=== PATIENT | female | born 1985 | race Native Hawaiian/Other Pacific Islander ===

== ENCOUNTER 2023-10-12 08:34 | Emergency (ER) | payer OTHER, SELFPAY ==
[2023-10-12 08:40] VITALS: BP 118/81; PULSE 72; RESP 16; TEMP 36.4; O2SAT 99; BMI 23.2
[2023-10-12] MEDS: ONDANSETRON 2 MG/ML inj 4 MG IVP (09:08)
[2023-10-12] MEDS: 0.9 % SODIUM CHLORIDE 1000 ml 1,000 ML IV (09:08)
[2023-10-12] MEDS: diphenhydrAMINE 50 MG/ML inj 25 MG IVP (09:09)
--- NOTE | 2023-10-12 09:10 | ED.GENADULT ---
HPI - General Adult General Chief complaint: Headache/Migraine Stated complaint: Dizzy, Numb hands, unsteady on feet, migraine Time Seen by Provider: 10/12/23 08:46 History of Present Illness HPI narrative: Patient is a 38-year-old woman with chronic migraine headaches who comes in today with worsening of her chronic migraine. She has left-sided headache as well as mild photophobia. She has no focal neurologic defects. Hip pain is 8/10 in intensity. She has had no nausea no vomiting no fevers no chills. She takes Excedrin and Tylenol for her headaches at home and those have been unsuccessful. Pain is dull. Related Data Home Medications ?Medication ?Instructions ?Recorded ?Confirmed cyclobenzaprine 10 mg tablet 10 mg PO HS PRN 10/12/23 10/12/23 levothyroxine 75 mcg tablet 75 mcg PO DAILY 10/12/23 10/12/23 Previous Rx's ?Medication ?Instructions ?Recorded ondansetron 8 mg disintegrating 8 mg PO Q8H PRN nausea and 10/05/23 tablet vomiting #10 tabs Allergies Allergy/AdvReac Type Severity Reaction Status Date / Time aspirin Allergy Mild itchy Verified 10/12/23 08:40 Review of Systems Status of ROS: Reports: 10 or more systems reviewed and unremarkable except as noted in History and below Exam Narrative: Exam Narrative: EXAM GENERAL: Patient appears comfortable and well. EYES: No scleral icterus. LYMPH: No supraclavicular or cervical lymphadenopathy. SKIN: Visible skin seen during exam normal or with benign process only. EXT: No dependent lower extremity pedal edema. HEART: Regular rate and rhythm with no murmurs, rubs, or gallops. LUNGS: Clear to auscultation bilaterally with no crackles or wheezes. ABD: Soft, non tender, non distended. PSYCH: Good eye contact, speech is not pressured. Const: Vital Signs, click to edit/add: Vital Signs - 24 hr 10/12/23 08:40 Temperature 97.6 F Pulse Rate [Pulse Oximeter] 72 Respiratory Rate 16 Blood Pressure [Le ft Upper Arm] 118/81 Pulse Oximetry 99 Oxygen Delivery Me thod Room Air Course Course ED Course: Patient seen and examined. Vital Signs Vital signs: Initial Vital Signs Temperature 97.6 F 10/12/23 08:40 Temperature Source Temporal Artery Scan 10/12/23 08:40 Pulse Rate 72 10/12/23 08:40 Respiratory Rate 16 10/12/23 08:40 Blood Pressure 118/81 10/12/23 08:40 Blood Pressure Mean 93 10/12/23 08:40 Blood Pressure Position Sitting 10/12/23 08:40 Pulse Oximetry 99 10/12/23 08:40 Oxygen Delivery Method Room Air 10/12/23 08:40 Vital Signs Temperature 97.6 F 10/12/23 08:40 Pulse Rate 72 10/12/23 08:40 Respiratory Rate 16 10/12/23 08:40 Blood Pressure 118/81 10/12/23 08:40 Pulse Oximetry 99 10/12/23 08:40 Oxygen Delivery Method Room Air 10/12/23 08:40 Temperature 97.6 F 10/12/23 08:40 Pulse Rate 72 10/12/23 08:40 Respiratory Rate 16 10/12/23 08:40 Blood Pressure 118/81 10/12/23 08:40 Pulse Oximetry 99 10/12/23 08:40 Oxygen Delivery Method Room Air 10/12/23 08:40 Medical Decision Making MDM Narrative Medical decision making narrative: Patient is a 38-year-old woman with chronic migraine headaches who presents with worsening of her chronic symptoms. There are no red flags today and we did treat her with normal saline Zofran Toradol and Benadryl. I did recommend close outpatient follow-up. Differential diagnosis includes but not limited to cluster headaches migraine headaches tension headaches seasonal allergies. Discharge Plan Discharge Clinical Impression: Headache Patient Disposition: Home, Self-Care Condition: Stable Instructions: Acute Headache (ED) Additional Instructions: Tylenol 650 every 6 hours as needed Motrin 600 mg every 6 hours as needed. Ice Follow-up with your doctor as needed. 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
[2023-10-12] MEDS: KETOROLAC 30 MG/ML inj IVP (09:22)
--- OUTSIDE RECORDS SUMMARY | 2023-10-12 09:23 | XMS_ITS | Clinical Summary ---
Author Organization [facility] Address [place], [place] [address] Care Team Providers Care Tool Crib Attendant Name Role Phone Unavailable Primary Care Provider Unavailabl e Allergies Active Allergy Reactions Criticality Noted Date Comments Latex Rash 02/20/2012 Shellfish Containing Products Rash,Itching 02/17 Montelukast Rash 08/06/2018 Medications Medication Sig Dispensed Refills Start Date End Date Status cetirizine (ZYRTEC) 10 mg tabletIndications:Non- seasonal allergic rhinitis due to other allergic trigger Take 1 tablet by mouth once daily. 90 tablet 3 7 Active pregabalin (LYRICA) 100 mg capsuleIndications:Fib romyalgia TAKE 1 CAPSULE(100 MG) BY MOUTH TWICE DAILY 60 Capsule 3 Active levothyroxine (SYNTHROID) 75 mcg tabletIndications:Hypo thyroidism, unspecified type Take 1 Tablet (75 mcg) by mouth before breakfast. 90 Tablet 4 Active cyclobenzaprine (FLEXERIL) 10 mg tabletIndications:Bila teral temporomandibular joint pain,Fibromyalgia Take 1 Tablet (10 mg) by mouth at bedtime if needed for Muscle Spasm. 30 Tablet 4 Active cyclobenzaprine (FLEXERIL) 10 mg tabletIndications:Bila teral temporomandibular joint pain,Fibromyalgia TAKE 1 TABLET(10 MG) BY MOUTH AT BEDTIME NEEDED FOR MUSCLE SPASM 30 Tablet 5 3 09/18/19 24 Discontinued Active Problems Problem Noted Date Diagnosed Date Anorexia nervosa, restricting type 2021 Hyperopia of both eyes 11/01/2019 Fibromyalgia 03/06/2019 Iron deficiency anemia secon figueroa to inadequate dietary iron intake 08/30/2017 Major depressive disorder, recurrent episode, un specified 07/12/2012 Posttraumatic stress disorder 07/12/2012 Overview: Complex PTSD/BPD Migraine 05/09/2012 Endometriosis 05/09/2012 Eating disorder, unspecified 08/22/2008 Hypothyroid Resolved Problems Problem Noted Date Diagnosed Date Resolved Date Nausea & vomiting 09/02/2014 11/28/2014 Pneumomediastinum 09/02/2014 11/28/2014 Overview: Post op Chest pain 09/02/2014 11/28/2014 Pelvic pain in female 08/28/20142018 Heavy menstrual bleeding 08/28/201401/2015 Borderline personality disorder 07/30/2012 09/04/2012 Overview: Complex PTSD Major depressive disorder, s maik episode, moderate 06/16/2008 09/04/2012 Encounters Date Type Department Care Team Description 10/12/2023 Nurse Triage [facility] Centralized Nurse Triage Pcp, No Headache 09/16/2023 Refill [facility] [address] [place] [address] Sabrina Chavez PA Refill Request (Cyclobenzaprine) 08/15/2023 Refill [facility] [address] [place] [address] Sabrina Chavez PA Refill Request (Levothyroxine) from Last 3 Months Immunizations Name Administration Dates Next Due AMB Influenza, IIV3 (Age >=3 years)(Flu Clinic Only) 12/23/2008 COVID-19 vaccine (Moderna 100mcg/0.5mL) PF, MDV 08/13/2020,07/16/2020 COVID-19 vaccine (Moderna Dariusz wesly 50mcg/0.25mL) PF, MDV 04/05/2021 COVID-19 vaccine (Pfizer-Bio NTech 30mcg/0.3mL) 12YO+ BIVALENT PF, MDV 12/17/2021 Influenza A (H1N1), Inactiva tyrone (Age >=3 Years) 07/16/2009 Influenza Virus, Unspecified 01/27/2018 Influenza, IIV3 (Age >=3 years) 12/30/19 17,12/24/2012,12/19/2011,2005 Influenza, IIV4 12/17/2021,,01/16/2020,2018,12/18/2014 Influenza,LAIV4 Live Intrana merlyn (Flumist) 01/11/2013 Tdap 10/30/2019,07/16/2009 Family History Medical History Relation Name Comments Alcohol/Drug Brother 1 Alcohol/Drug Brother 2 Alcohol/Drug Father EtOH Diabetes Father had TB, hepatic CA, age 63 Other Mother migraine Diabetes Sister 1 Eliodora Diabetes Sister 2 Other Sister 3 Jeanette Cerebral hemorr alpa, in her 30s Other Sister 4 cataracts Anesthesia Problem No Family History Blood Disease No Family History Relation Name Status Comments Brother 1 Brother 2 Father Mother Sister 1 Eliodora Sister 2 Sister 3 Jeanette Sister 4 Social History Tobacco Use Types Packs/Day Years Used Date Smoking Tobacco: Never Smokeless Tobacco: Never Tobacco Cessation:Counseling Given: Yes Alcohol Use Standard Drinks/Week Comments No 0 (1 standard drink = 0.6 oz pur e alcohol) Overused EtOH 2011 PHQ-2 Answer Date Recorded PHQ-2 TOTAL SCORE 1 09/16/2021 Social Connections Answer Date Recorded Frequency of Communication with Friends and Fami ly Not on file 03/20/2021 Financial Resource Strain Answer Date R ecorded Difficulty of Paying Living Expenses Not on file 03/20/2021 Difficulty of Paying Living Expenses Not on file 03/20/2021 Sex and Gender Information Value Date Recorded Sex Assigned at Female 04/02/2021 8:07 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 Gender Identity Female 04/02/2021 8:07 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 Sexual Orientation Straight 04/02/2021 8: 07 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 Obstetrics History Para Term AB IAB SAB Ectopic Multiple Livin g Live Births 2 2 2 0 0 0 0 0 0 2 2 Date Outcome GA Total Labor Labor/2nd/3rd Weight Sex Type Anes PTL Cindy A1 A5 Name Clin 4 Term 4.2 kg (9 lb 4 oz) F Vag Living 7 Term 3.8 kg (8 lb 6 oz) F Vag Living Last Filed Vital Signs Vital Sign Reading Time Taken Comments Blood Pressure 118/82 08/03/2022 9:15 AM CDT Pulse 69 08/03/2022 9:15 AM CDT Temperature 37.6 ??C (99.6 ??F) 01/14/2021 4:37 PM CD T Respiratory Rate 18 01/14/2021 4:37 PM CDT Oxygen Saturation 100% 08/03/2022 9:15 AM CDT Inhaled Oxygen Concentration - - Weight 56.2 kg (124 lb) 08/03/2022 9:15 AM CDT Height 156.2 cm (5' 1.5) 08/03/2022 9:15 AM CDT Body Mass Index 23.05 08/03/2022 9:15 AM CDT Plan of Treatment Health Maintenance Due Date Last Done Comments Depression screening for age 12+ 09/16/2022 09/16/2021, 08/28/2020, 08/23/2019, Additional history exists COVID-19 vaccine series ( season) 2022 12/17/2021, 04/05/2021, 08/13/2020, Additional history exists BMI (ht and wt on same day) for age 18+ 08/04/2023 08/03/2022, 06/09/2022, 2021, Additional history exists Influenza for age 9-49 11/19/2023 , 12/11/2020, 01/16/2020, Additional history exists Tetanus booster 10/29/2029 10/30/2019, 07/16/2009 Hepatitis C screening for age 18-79 Completed 01/17/2011 HIV for age 15-65 Completed 10/30/2014, 01/17/2011 Tdap Completed 10/30/2019, 07/16/2009 Pneumococcal series for age 6-64 Aged Out No longer eligible based on patient's age to complete this topic Procedures Procedure Name Priority Date/Time Associated Diagnosis Comments ANTI HIV 1/2 Routine 10/30/2014 11:20 AM CDT Vulvar lesion ANTI HCV Routine 01/17/2011 7:25 AM CDT Screen for STD (sexually transmitted disease) from Last 3 Months or Most Recently Relevant to Health Maintenance Results * ANTI HIV 1/2 (10/30/2014 11:20 AM CDT) HIV-1/HIV-2 ANTIBODY Non-Reacti ve Non-Reacti ve 10/30/2014 10:48 PM CDT [facility] Blood specimen (specimen) BLOOD SPECIMEN / Unknown Venipuncture / Unknown 10/30/2014 11:20 AM CDT 10/30/2014 11:20 AM CDT Narrative [facility] - 10/30/2014 10:48 PM CDT HIV-1 p24 and HIV-1/HIV-2 Ab not detected Amada Greer DO [facility] [address] [place] [address], * ANTI HCV (01/17/2011 7:25 AM CDT) ANTI HCV Non-reacti ve [facility] Blood specimen (specimen) BLOOD SPECIMEN / Unknown 01/17/2011 7:25 AM CDT 01/17/2011 7:19 AM CDT Kranthi Vargas MD [facility] [place]IP [address] [place] [address] from Last 3 Months or Most Recently Relevant to Health Maintenance Advance Directives * Full Code (Latest Code Status on File) Date Activated Date Inactivated Comments 09/02/2014 9:41 PM 09/03/2014 2:30 PM * Full Code Date Activated Date Inactivated Comments 08/28/2014 12:46 PM 08/28/2014 7:41 PM * Full Code Date Activated Date Inactivated Comments 08/28/2014 9:18 AM 08/28/2014 12:46 PM * Full Code Date Activated Date Inactivated Comments 01/28/2013 11:36 AM 01/28/2013 7:27 PM * Full Code Date Activated Date Inactivated Comments 03/02/2012 10:46 AM 03/02/2012 7:09 PM
--- OUTSIDE RECORDS SUMMARY | 2023-10-12 09:23 | XMS_ITS | Data Portability ---
Author Organization [facility] Address [address] [place] [address] [place] [address] Assessment No assessment recorded. Plan of Treatment Reminders Order Date Submit Date Provider Last Modified By Organization Details Last Modified Time Details Appointments Any 30 2023 02:30P M SARTHAK Contreras Not available Not available Not available Lab None recorded. Referral None recorded. Procedures None recorded. Surgeries None recorded. Imaging MAMMO, diagnosti c, digital, bilateral - Lump in right upper breast between 11,12 oclock position 2023 024 [facility] Not available 06/28/2023 16:20:37 US, breast, unilatera l - Lump in right upper breast between ,12 oclock position 2023 024 [facility] Not available 06/28/2023 16:21:24 Medication Orders propranol ol ER 80 mg capsule,2 4 hr,extend ed release [address], [address], 01/30/2023 16:21:33 prednison e 10 mg tablet [address], [address], 05/15/2023 14:13:47 pregabali n 100 mg capsule 2022 023 [id number], [address] [place], [place], [phone], 01/30/2023 15:42:44 Patient TargetsNo targets recorded. Patient InstructionsNo instructions recorded. Reason for Referral None Reported. Results Created Date Observation Date Name Description Value Unit Range Abnormal Flag LastModifiedBy Organization Detail LastModifiedTime 06/28/19 24 06/28/2023 MAMMO , diagn ostic , digit al, bilat eral No observ ation record ed. [id number] [facility] [address] [place], [address], 06/29/2023 09:44:43 06/28/19 24 06/28/2023 US, mirellaas t, unila teral No observ ation record ed. [id number] [facility] [address] [place], [address], 06/29/2023 09:44:43 Result Notes None recorded. Problems Name Status Onset Date Resolution Date Notes Provider Name and Address Organization Details Recorded Time Migraine Active 01/31/20 23 SARTHAK Contreras [address] [place], [address] , [facility] 01/30/2023 15:09:59 Fibromyalgia Active 01/31/20 23 SARTHAK Contreras [address] [place], [address] , [facility] 01/30/2023 15:10:09 Hypothyroidism Active 01/31/20 23 SARTHAK Contreras [address] [place] [address], [phone] , [facility] 01/30/2023 15:10:18 Carpal tunnel syndrome Active 02/01/20 23 SARTHAK Contreras [address] [place] [address], [phone] , [facility] 01/31/2023 10:45:44 Problem Notes None recorded. Procedures Surgical History None recorded. Imaging Results Imaging Date Name Status LastModified by Organiz ation Details LastModified Time 06/28/2023 MAMMO, diagnostic, digital, bilateral completed [id number] [facility] [address] [place], [address], 06/29/2023 09:44:43 06/28/2023 US, breast, unilateral completed [id number] [facility] [address] [place], [address], 06/29/2023 09:44:43 Procedure Notes None recorded. Medical Equipment None Reported. Medications Name Sig Start Date Stop Date Status Note LastModified by Organization Details LastModified Time cyclobenzapr ine 10 mg tablet Take 1 tablet as needed by oral route at bedtime. active Not Available Not Available No t Available prednisone 10 mg tablet Take 5 pills day 1-2, 4 pills day 3-4, 3 pills days 5-6, 2 pills days 7-8, 1 pill day 9-10 05/15 completed Not Available Not Available Not Available levothyroxin e 75 mcg tablet Take 1 tablet every day by oral route for 90 days. 2023 active Not Available Not Available Not Avai lable propranolol ER 80 mg capsule,24 hr,extended release TAKE ONE CAPSULE BY MOUTH EVERY DAY 2023 active Not Available Not Available Not Avai lable pregabalin 100 mg capsule Take 1 capsule( s) twice a day by oral route. active Not Available Not Available No t Available levothyroxin e 75mcg active Not Available Not Available Not Available Vitals Date Recorded Body height Body mass index (BMI) Body weight Oxygen saturation Oxygen saturation in Arterial blood by Pulse oximetry Heart rate Systolic blood pressure Diastolic blood pressure Provider Name and Address Organization Details Last Updated DateTime 3 156 cm 24.2 kg/m2 15537.9 3 g 96 % 96 % 97 /min 124 mm[Hg] 79 mm[Hg] SARTHAK Contreras [address] [place], [address] , [place] [facility] 3 15:07:39 Date Recorded Body height Body mass index (BMI) Body weight Heart rate Systolic blood pressure Diastolic blood pressure Provider Name and Address Organization Details Last Updated DateTime 3 156.01 cm 24 kg/m2 04818.4 2 g 60 /min 116 mm[Hg] 76 mm[Hg] SARTHAK Contreras [address] [place], [address], [facility] 3 11:51:35 Date Recorded Body height Body mass index (BMI) Body weight Oxygen saturation Oxygen saturation in Arterial blood by Pulse oximetry Respiratory rate Systolic blood pressure Diastolic blood pressure Provider Name and Address Organization Details Last Updated DateTime 4 156 cm 1.2 kg/m2 3039.07 g 100 % 100 % 69 /min 110 mm[Hg] 73 mm[Hg] SARTHAK Contreras [address] [place], [address], [facility] 4 14:11:17 Social History None recorded. Functional Status None recorded. Mental Status None recorded. Family History Relationship Description Onset Age of this Age Resolved Age Notes Sister Hypertensive disorder Sister Diabetes mellitus Sister Diabetes mellitus Father Diabetes mellitus Medical History No medical history recorded. Gynecological HistoryNo gynecological history recorded. Obstetrics History GPAL:G 0 P 0 0 0 0 Past Encounters Encounter ID Performer Location Encounter Start Date Encounter Closed Date Diagnosis/Indication Diagnosis SNOMED-CT Code [id number] SARTHAK Contreras [facility] [address] [place] [address] 01/30/2023 14:59:11 01/30/2023 15:56:08 Migraine with aura 2066911 Fibromyalgia 546156022 Hypothyroidism [id number] SARTHAK Contreras [facility] [address] [place] [address] 02/27/2023 11:02:37 02/27/2023 11:51:09 Migraine with aura 3530459 Lateral ep icondylitis of right humerus 7202757425703 07 Feels hot [id number] SARTHAK Contreras [facility] [address] [place] [address] 05/15/2023 13:57:26 05/15/2023 14:38:14 Mass of right breast 5182576253080 9106 Migraine with aura 33026 06 Health Concerns Section Related Observation LastModified by Organization Detai ls LastModified Time None Recorded Concern Status LastModified by Organization Details LastModified Time None Recorded Advance Directives Directive None Recorded Payers Encounter Date Sequence Insurance Name Policy Number Policy Gomez Covered Member ID Gomez Member ID Guarantor Name 01/30/2023 SLIDING FEE SCHEDULE - DISCOUNT Velma Doe 02/27/2023 SLIDING FEE SCHEDULE - DISCOUNT Velma Doe 05/15/2023 SLIDING FEE SCHEDULE - DISCOUNT Velma Doe Notes Date Note Type Note Provider Name and Address Organization Details Recorded Time 01/30/2023 text/html HPI Notes: Pt he re today for first visit at [facility] Used to been seen in [facility]-- last visit this past spring Pt here b/c needs refill on her medications as well as treatment for intractable migraine Pt has long hx of migraines (x18 yrs) but reports in the last year has been having them much more frequently, almost daily. In past, would experience several times a month. Headache she is currently experiencing is felt on the left side of her head, behind the eye, and radiates down the side of the neck; sometimes pain is pressure, pulsating; also feeling kind of cold along from side of head down to shoulder Rates pain right now as 7/10 Current pain does not wake her from sleep Reports JEAN-BAPTISTE's are usually unilateral and felt behind the eye. The fact that current JEAN-BAPTISTE is radiating down the side of the head is unusual Usually pain is pulsating or like a pressure Taking tylenol or ibuprofen pretty regularly (daily). Other things that help migraines are pressure applied to head; dark room Says in past was prescribed abortive med for migraines but did not tolerate it at all; unfortunately can't remember name of this medication With migraines pt usually experiences nausea, vomiting, blurry vision, dizziness Triggers include perfumes, cigarette smoke, stress Says in the past year has been to ER x 2 and had MRIs which were negative Worried b/c has a sister who had a stroke Does wear glasses. Last eye exam was about a year ago. Due for one now but it is quite expensive. Pt reports positive hx of fibromyalgia, hypothyroidism, TMJ, carpal tunnel. On pregablin 100mg b.i.d (fibromyalgia), cyclobenzaprine (TMJ) and 75mcg of levothyroxine LMP: No periods, had hysterectomy at age 28. Has hx of endometriosis. 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 Was unable to determine what previous JEAN-BAPTISTE medication she had a negative reaction to. Says is doing better. Instead of a daily JEAN-BAPTISTE, she is reporting sxs every 2nd or 3rd day. Also reports it is less pain and more like a numbness on the left side of her head the comes and can last for hours or all day NO vision changes, hearing changes, loss of muscle control on face, etc. Also is complaining of new right elbow pain Pain over lateral epicondyle with pain that radiates down the arm lastly, recently noticing hot flashes -- mostly just face wondering if could be medication reaction Had hysterectomy but does have both ovaries SARTHAK Contreras [address] [facility] [place], [address], [facility] 02/28/2023 18:33:34 05/15/2023 text/html HPI Notes: Mariya paige is following up with me to review her migraines Established care end of last year Was started on propranolol for migraine prophylaxis (see previous OV notes). Reports she was doing great on Propranolol alone, however when she tried to add magnesium and riboflavin her headaches worsened per report. Says that numbness on the left side of her head returned as well. Almost ended up in ER because of the pain, but it has improved since then now NO vision changes, hearing changes, loss of muscle control on face, etc. At last visit also treated for lateral epicondylitis. She never got the brace. Still endorses pain Lastly would like me to evaluate a lump on her right breast which she noticed in the last several weeks It is painful No skin changes No prior mammograms. SARTHAK Contreras [address] [facility] [place], [address], [facility] 05/17/2023 13:55:05 OBGyn Episode No OBEpisode recorded.
[2023-10-12 10:13] VITALS: BP 133/86; PULSE 60; RESP 16; O2SAT 98
== END 2023-10-12 10:21 | disposition home or self-care (01) ==
PROVIDERS: Emergency Provider Internal Medicine; PCP Nurse Practitioner Family
DX: R51.9 Headache, unspecified (principal)
CPT/HCPCS: 96374; 96375; 99283; J1200; J1885; J2405; J7030

== ENCOUNTER 2024-03-29 20:49 | Emergency (ER) | payer OTHER, SELFPAY ==
[2024-03-29] VITALS (9 sets, daily range): BP systolic 130–144; BP diastolic 86–97; PULSE 64–81; RESP 16; TEMP 36.2; O2SAT 98–100; BMI 23.2
--- OUTSIDE RECORDS SUMMARY | 2024-03-29 20:51 | XMS_ITS | Data Portability ---
Author Organization [facility] Address [address] [place] [address] [place] [address] Assessment No assessment recorded. Plan of Treatment Reminders Order Date Submit Date Provider Last Modified By Organization Details Last Modified Time Details Appointments None recorded. Lab TSH, serum or plasma 2023 OLIVER Not available 4 21:15:01 Referral None recorded. Procedures None recorded. Surgeries None recorded. Imaging MAMMO, diagnostic, digital, bilateral - Lump in right upper breast between 11,12 oclock position 2023 024 OLIVER Not available 4 16:20:37 US, breast, unilateral - Lump in right upper breast between 11,12 oclock position 2023 024 OLIVER Not available 4 16:21:24 Medication Orders propranolol 80 mg tablet [address], [address], 4 10:15:40 prednisone 10 mg tablet [address], [address], 4 10:19:08 cyclobenzap rine 10 mg tablet [address], [address], 4 15:30:55 amitriptyli ne 10 mg tablet 2023 024 [facility], [address] [place] [address], [address], 4 10:15:37 Patient TargetsNo targets recorded. Patient InstructionsNo instructions recorded. Reason for Referral None Reported. Results Created Date Observation Date Name Description Value Unit Range Abnormal Flag Note LastModifiedBy Organization Detail LastModifiedTime 06/28/1906/28/2023 MAMMO , diagn ostic , digit al, bilat eral No observ ation record ed. [email or web address] [place] [address] Radiology [address] [place], [address], 06/29/2023 09:44:43 06/28/1906/28/2023 US, margot t, unila teral No observ ation record ed. [email or web address] Rad[facility] [address] [place], [address], 06/29/2023 09:44:43 Result Notes None recorded. Problems Name Problem SNOMED Code Status Onset Date Resolution Date Notes Provider Name and Address Organization Details Recorded Time Migraine 78716937 Active 2022 SARTHAK Contreras [address] [place], [address], [employer] 3 15:09:59 Fibromyalgia 902973929 Active 2022 SARTHAK Contreras [address] [place] [address], [address], [employer] 3 15:10:09 Hypothyroidis m 83185360 Active 2022 SARTHAK Contreras [address] [place], [address], [employer] 3 15:10:18 Carpal tunnel syndrome 04745818 Active 2022 Kacy Lawson, AUBREE [address] [place], [address] 8[facility] 12:18:39 Problem Notes None recorded. Procedures Surgical History None recorded. Imaging Results Imaging Date Name Status LastModified by Organiz ation Details LastModified Time 06/28/2023 MAMMO, diagnostic, digital, bilateral completed [address] Radiology [address] [place], [address], 06/29/2023 09:44:43 06/28/2023 US, breast, unilateral completed [address] Rad[facility] [address] [place], [address], 06/29/2023 09:44:43 Procedure Notes None recorded. Medical Equipment None Reported. Medications Name Sig Start Date Stop Date Status Note LastModified by Organization Details LastModified Time cyclobenzapr ine 10 mg tablet Take 1 tablet as needed by oral route at bedtime. 2023 active Not Available Not Available Not Avai lable prednisone 10 mg tablet Take 5 pills day 1-2, 4 pills day 3-4, 3 pills days 5-6, 2 pills days 7-8, 1 pill day 9-10 11/26 completed Not Available Not Available Not Available levothyroxin e 75 mcg tablet TAKE ONE TABLET BY MOUTH EVERY DAY 2024 active Not Available Not Available Not Avai lable propranolol ER 80 mg capsule,24 hr,extended release TAKE ONE CAPSULE BY MOUTH EVERY DAY 11/26 completed Not Available Not Available Not Available pregabalin 100 mg capsule TAKE ONE CAPSULE BY MOUTH TWICE A DAY 2023 active Not Available Not Available Not Avai lable levothyroxin e 75mcg 11/26 completed Not Available Not Available Not Available Vitals Date Recorded Body height Body mass index (BMI) Body weight Oxygen saturation Oxygen saturation in Arterial blood by Pulse oximetry Respiratory rate Systolic blood pressure Diastolic blood pressure Provider Name and Address Organization Details Last Updated DateTime 156 cm 1.2 kg/m2 3039.07 g 100 % 100 % 69 /min 110 mm[Hg] 73 mm[Hg] SARTHAK Contreras [address] [place], [address], [facility] 4 14:11:17 Date Recorded Body weight Heart rate Systolic blood pressure Diastolic blood pressure Provider Name and Address Organization Details Last Updated DateTime 10/23/2023 09097.62 g 63 /min 126 mm[Hg] 81 mm[Hg] SARTHAK Contreras [address] [place], [address] , [facility] 10/23/2023 10:44:16 Date Recorded Body height Body mass index (BMI) Body weight Oxygen saturation Oxygen saturation in Arterial blood by Pulse oximetry Systolic blood pressure Diastolic blood pressure Provider Name and Address Organization Details Last Updated DateTime 4 156.01 cm 23.6 kg/m2 83104.8 7 g 100 % 100 % 125 mm[Hg] 81 mm[Hg] SARTHAK Contreras [address] [place], [address], [facility] 4 10:17:15 Date Recorded Heart rate Oxygen saturation Oxygen saturation in Arterial blood by Pulse oximetry Systolic blood pressure Diastolic blood pressure Provider Name and Address Organization Details Last Updated DateTime 4 71 /min 99 % 99 % 125 mm[Hg] 77 mm[Hg] SARTHAK Contreras [address] [place], [address], [facility] 4 16:00:16 Social History None recorded. Functional Status None recorded. Mental Status None recorded. Family History Relationship Description Onset Age of this Age Resolved Age Notes LastModified by Organization Details LastModified Time Sister Hypertensive disorder jbeitz Not available 2022 15:09:18 Sister Diabetes mellitus jbeitz Not available 2022 15:09:33 Sister Diabetes mellitus jbeitz Not available 2022 15:09:33 Father Diabetes mellitus jbeitz Not available 2022 15:09:33 Medical History No medical history recorded. Gynecological HistoryNo gynecological history recorded. Obstetrics History GPAL:G 0 P 0 0 0 0 Past Encounters Encounter ID Performer Location Encounter Start Date Encounter Closed Date Diagnosis/Indication Diagnosis SNOMED-CT Code Diagnosis ICD10 Code Diagnosis Note [id number] SARTHAK ContrerasED [facility] [address] [place] [address] 01/30/2023 14:59:11 01/30/2023 15:56:08 Migraine with aura 9850595 G43.109 Discussed possibilit y of rebound sxs given regular use of analgesics Would like to have pt stop use of acetaminop hen and ibuprofen nowWill try a prednisone burst to see if we can abort current JEAN-BAPTISTE sxs. Start with 50mg x 2 days; 40mg x 2 days, 30mg x 2 days, 20mg x2 days, 10mg x 2 days Start propranolo l 80mg daily for prevention Also recommende d 400mg daily of both riboflavin and magnesium glycinate (or oxide) to be purchased OTC F/U 1 month to see how responding Will try to review records from [facility] to try and figure out what medication caused the negative reaction; am reluctant to rx a triptan without more informatio n Fibromyalgia 638436825 M 79.7 Refilled pregablin today; otherwise did not discuss in any detailWill request some records from [facility] Hypothyroidism 31030084 E03.9 Will request records from [facility] to see when last check of TSH was [id number] SARTHAK Contreras [facility] [address] [place] [address] 02/27/2023 11:02:37 02/27/2023 11:51:09 Migraine with aura 6846232 G43.109 COntinue propranolo lThe numbness on left side should continue to be monitoredE xplained can take ibuprofen or acetaminop hen for pain , had stopped b/c was taking continuous ly and I was afraid she was causing rebound HAMaybe consider amitriptyl ine in future instead of propranolo l but I'd like to give this some more timeWill f/u in April Lateral ep icondylitis of right humerus [id number] 35489 M77.11 Reviewed condition with ptadvised purchase and use of tennis elbow braceHand out provided with recommenda tion for icing, stretching and exercisesP T would be ideal but cost prohibitiv eF/U if not improving Feels hot [id number] R20. 8 not sure if this is menopausal , but consider itAdvised to keep monitoring Pt not interested in exploring other medication at this time [id number] SARTHAK ContrerasED [facility] [address] [place] [address] 05/15/2023 13:57:26 05/15/2023 14:38:14 Mass of right breast 7370368887 5485053 N63.10 Will order diagnostic mammo c right breast U/SSage paperwork filled out today ([id number])E xplained process to ptWill f/u with results when received Migraine with aura 76447 06 G43.109 Continue propranolo lNo more magnesium or riboflavin for concerns of unfavorabl e reactionF/ U if worsening, other concernsIb uprofen or acetaminop hen prn acute pain [id number] SARTHAK Contreras OFFICE [address] [place] [address] 10/23/2023 10:30:11 10/23/2023 11:37:54 Migraine with aura 8371901 G43.109 Restart propranolo l at 80mg b.i.d. Could try another class of meds ( like amitriptyl ine or venlefaxin e). I'm a little reluctant to try something like topiramate since she is already taking pregabalin .No more magnesium or riboflavin for concerns of unfavorabl e reactionWi ll do prednisone taper to address current headache given this worked for her in the pastF/U 1 month to reassess Hypothyroidism 49102249 E03.9 Will check TSH and f/u with any abnormalit y necessitat ing medication dose changes [id number] SARTHAK Contreras OFFICE [address] [place] [address] 11/27/2023 10:13:22 11/27/2023 12:16:15 Migraine with aura 2167648 G43.109 Discussed trial of another class of meds ( like amitriptyl ine or venlefaxin e). I'm a little reluctant to try something like topiramate since she is already taking pregabalin .She would like to try amitriptyl ine; reviewed common SEWIll start with 10mg at night; can increase to 20mg as toleratedF /U next month to reassess No more magnesium or riboflavin for concerns of unfavorabl e reaction Temporoman dibular joint disorder 22466371 M26.609 [id number] SARTHAK Contreras [facility] [address] [place] [address] 12/13/2023 15:56:17 12/13/2023 16:11:22 Migraine with aura 4087984 G43.109 I'm not sure trialing another medication is the best next step, though we have discussed trialing venlafaxin e or topiramate I'm a little reluctant to try something like topiramate since she is already taking pregabalin .We did talk about the possibilit y that the worsening migraines could possibly be a reaction to the pregablin which she is taking for fibromyalg ia as 14% of users c/o JEAN-BAPTISTE as a SE (per up to date). Seems less likely to be a SE of the cyclobenza Boone could try weaning off the pregablin to see what happens with her HAsShe is interested in trialing this so will start be only taking the evening dose and stopping the AM dose.I will f/u with her by phone in 2 weeks [id number] SARTHAK Contreras [facility] [address] [place] [address] 12/25/2023 09:59:38 12/25/2023 10:20:41 Migraine with aura 5344510 G43.109 Since she got some improvemen t with the reduction of pregabalin , I think it is worth exploring dropping it further, though it may simply be a coincidenc ePt to drop rom nightly use of pregabalin to every other nightShe will call in to let me know how things are going Health Concerns Section Related Observation LastModified by Organization Detai ls LastModified Time None Recorded Concern Status LastModified by Organization Details LastModified Time None Recorded Advance Directives Directive None Recorded Payers Encounter Date Sequence Insurance Name Policy Number Policy Gomez Covered Member ID Gomez Member ID Guarantor Name 05/15/2023 SLIDING FEE SCHEDULE - DISCOUNT Velma Doe 10/23/2023 SLIDING FEE SCHEDULE - DISCOUNT Velma Doe 11/27/2023 SLIDING FEE SCHEDULE - DISCOUNT Velma Doe 12/13/2023 SLIDING FEE SCHEDULE - DISCOUNT Velma Doe Notes Date Note Type Note Provider Name and Address Organization Details Recorded Time 05/15/2023 text/html Velma guy ugo mistry up with me to review her migraines [...] which she noticed in the last several weeksIt is painfulNo skin changes No prior mammograms. SARTHAK Contreras [address] [place], [address], [facility] 05/17/2023 13:55:05 10/23/2023 text/html Velma guy ugo mistry up from an ER visit last month for worsening migrainesWas taking propranol 80mg Initially it seemed to help reduce the frequency of migraines However within the last month or 2, she has started having them again. She has stopped taking the propranolol b/c felt like it wasn't helpful. Has been about a month since she has taken itHA is pretty constant; still left sided. Describes feeling numb and like she has facial edema. Sometimes vision is blurry. Current pain rated 7/10 Since ER visit: has been taking Advil migraine or tylenol pretty regularly to manage painiShe is aware of the risk of rebound JEAN-BAPTISTE which we had discussed previously She is due for TSH check; last time this was done was at [facility] in July 2022. SARTHAK Contreras [address] [place], [address], [facility] 10/23/2023 11:12:25 11/27/2023 text/html Velma guy ugo mistry up from visit 1 month ago with c/o worsening migrainesLiliana had been on80mg of propranol which seemed to help with her migraines initially. however, she began experiencing an increase in the headaches after being on the propranolol for a while. As such, we decided to try increasing dosage of propranol at last visit from 80mg/day to -80mg/bidAt that time, pt was also given a steroid taper to try and arrest the continuous migraine she had been experiencing.The prednisone was helpful but she reports that the propranol seemed to make things worse (?) so she stopped taking it about 3 weeks ago.Since then she has returned to having a constant daily headache. Takes ibuprofen prn. Sometimes JEAN-BAPTISTE is unbearable and other days it is more manageable but still present. Ibuprofen does help. Also started taking a couple of different teas (chamomile, stress tea (?) that offer minimal helps.JEAN-BAPTISTE pain is mostly the same though now feels more centrally located whereas previously it was more left sided She also suffers from fibromyalgia, for which she takes pregablin, as well as TMJ, for which she takes cyclobenzaprine at night. Due for refill of the latter. Does not tolerate magnesium or riboflavin (see previous notes for more) TSH checked last visit and WNL SARTHAK Contreras [address] [place], [address], [facility] 11/27/2023 11:41:34 12/13/2023 text/html Here today for f /u from last visit a couple of weeks ago (please see previous noted)started amitriptyline for migraine prophylaxis but reports shortly after starting, JEAN-BAPTISTE seemed to worsenStopped the medication 2-3 days ago nowStill having migraines but it is back to her baselineWe have tried propranol, which initially seemed to help when she started it at 80mg/day; however it stopped working and when we tried twice a day, things seemed to worsenHave been unable to find a satisfactory solution to her chronic migrainesShe is quite frustrated with how things have gone. When she initially had problems with migraines she was having 1-2/week and would go several months with no migraines.But now, things have worsened such that she has a constant HAThis worsening has occurred over the last 1-2 yearsSee previous notes for more detailed history. SARTHAK Contreras [address] [place], [address], [facility] 12/14/2023 18:33:49 12/25/2023 text/html Here today for f /u from last visit a couple of weeks ago (please see previous note)Today's visit is done via video conference In an attempt o manage Velma's intractable migraines, we trialled dropping her pregabalin dose (since JEAN-BAPTISTE is a SE of this medication)She says that she stopped taking her AM dose and about 3 days after stopping it, headaches resolved. However, 3 days ago, JEAN-BAPTISTE started back up again.No other changes.She does say her fibromyalgia pain DID NOT worsen with this dose reduction in the pregabalin. We have tried propranolol and amitriptyline for migraine prophylaxis as well as magneisum and riboflavin. See previous notes for more detailed history. SARTHAK Contreras [address] [place] [address], [address], [facility] 12/25/2023 10:16:35 OBGyn Episode No OBEpisode recorded.
--- OUTSIDE RECORDS SUMMARY | 2024-03-29 20:51 | XMS_ITS | Clinical Summary ---
Author Organization [facility] Address [place], [place] [address] Care Team Providers Care Radiological Metallurgist Name Role Phone Unavailable Primary Care Provider Unavailabl e Allergies Active Allergy Reactions Criticality Noted Date Comments Latex Rash 02/20/2012 Shellfish Containing Products Rash,Itching 02/17 Montelukast Rash 08/06/2018 Medications cetirizine (ZYRTEC) 10 mg tabletIndications:Non -seasonal allergic rhinitis due to other allergic trigger Take 1 tablet by mouth once daily. 90 tablet 3 7 Active pregabalin (LYRICA) 100 mg capsuleIndications:Fi bromyalgia TAKE 1 CAPSULE(100 MG) BY MOUTH TWICE DAILY 60 Capsule 3 Active levothyroxine (SYNTHROID) 75 mcg tabletIndications:Hyp othyroidism, unspecified type Take 1 Tablet (75 mcg) by mouth before breakfast. 90 Tablet 4 Active cyclobenzaprine (FLEXERIL) 10 mg tabletIndications:Andrew ateral temporomandibular joint pain,Fibromyalgia Take 1 Tablet (10 mg) by mouth at bedtime if needed for Muscle Spasm. 30 Tablet 4 Active Active Problems Problem Noted Date Diagnosed Date Anorexia nervosa, restricting type 2021 Hyperopia of both eyes 11/01/2019 Fibromyalgia 03/06/2019 Iron deficiency anemia sidneyon figueroa to inadequate dietary iron intake 08/30/2017 Major depressive disorder, recurrent episode, un specified 07/12/2012 Posttraumatic stress disorder 07/12/2012 Overview (07/30/2012): Complex PTSD/BPD Migraine 05/09/2012 Endometriosis 05/09/2012 Eating disorder, unspecified 08/22/2008 Hypothyroid Resolved Problems Problem Noted Date Diagnosed Date Resolved Date Nausea & vomiting 09/02/2014 11/28/2014 Pneumomediastinum 09/02/2014 11/28/2014 Overview (09/02/2014): Post op Chest pain 09/02/2014 11/28/2014 Pelvic pain in female 08/28/20142018 Heavy menstrual bleeding 08/28/201401/2015 Borderline personality disorder 07/30/2012 09/04/2012 Overview (07/30/2012): Complex PTSD Major depressive disorder, s maik episode, moderate 06/16/2008 09/04/2012 Immunizations Name Administration Dates Next Due AMB Influenza, IIV3 (Age >=3 years)(Flu Clinic Only) 12/23/2008 COVID-19 vaccine (Moderna 100mcg/0.5mL) PF, MDV 08/13/2020,07/16/2020 COVID-19 vaccine (Moderna Dariusz wesly 50mcg/0.25mL) PF, MDV 04/05/2021 COVID-19 vaccine (Pfizer-Bio NTech 30mcg/0.3mL) 12YO+ BIVALENT PF, MDV 12/17/2021 Influenza A (H1N1), Inactiva tyrone (Age >=3 Years) 07/16/2009 Influenza Virus, Unspecified 01/27/2018 Influenza, IIV3 (Age >=3 years) 12/30/19 17,12/24/2012,12/19/2011,2005 Influenza, IIV4 12/17/2021, 1,01/16/2020,2018,12/18/2014 Influenza,LAIV4 Live Intrana merlyn (Flumist) 01/11/2013 Tdap [...] Paying Living Expenses Not on file 03/20/2021 Comments No Sex and Gender Information Value Date Recorded Sex Assigned at Female 04/02/2021 8:07 PM [employer] Legal Sex Female 7:03 AM [employer] Gender Identity Female 04/02/2021 8:07 PM [employer] Sexual Orientation Straight 04/02/2021 8: 07 PM [employer] 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 Not on file Not on file Obstetrics History Para Term AB IAB SAB [...] 67 08/03/2022 9:15 AM CDT Temperature 37.6 C (99.6 F) 01/14/2021 4:37 PM CDT Respiratory Rate 18 01/14/2021 4:37 PM CDT [...] 09/16/2022 09/16/2021, 08/28/2020, 08/23/2019, Additional history exists BMI (ht and wt on same day) for age 18+ 08/04/2023 08/03/2022, 06/09/2022, 2021, Additional history exists COVID-19 vaccine series ( season) 2023 12/17/2021, 04/05/2021, 08/13/2020, Additional history exists Influenza for age 9-49 11/19/2023 , 12/11/2020, 01/16/2020, Additional history exists Tetanus booster 10/29/2029 10/30/2019, 07/16/2009 Hepatitis C screening for age 18-79 Completed 01/17/2011 HIV for age 15-65 Completed 10/30/2014, 01/17/2011 Tdap Completed 10/30/2019, 07/16/2009 Pneumococcal series for age 6-49 Aged Out No longer eligible based on [...] ve Non-Reacti ve 10/30/2014 10:48 PM CDT [facility] Blood specimen (specimen) BLOOD SPECIMEN / Unknown Venipuncture / Unknown 10/30/2014 11:20 AM CDT 10/30/2014 11:20 AM CDT Narrative [facility] - 10/30/2014 10:48 PM CDT HIV-1 p24 and HIV-1/HIV-2 Ab not detected us Amada Greer DO SEND OUTS Final Resu lt [facility] [address] [place] [address], * ANTI HCV (01/17/2011 7:25 AM CDT) ANTI HCV Non-reacti ve [facility] Blood specimen (specimen) BLOOD SPECIMEN / Unknown 01/17/2011 7:25 AM CDT 01/17/2011 7:19 AM CDT us Kranthi Vargas MD [employer] Final Re sult [facility] INTERNAL ZIP [address] [place] [address] from Last 3 Months or Most Recently [...]
--- NOTE | 2024-03-29 21:10 | ED.HA ---
HPI - Headache General Chief Complaint: Headache/Migraine Stated Complaint: Migrain Time Seen by Provider: 03/29/24 21:01 History of Present Illness HPI Narrative: This 38-year-old female has history of chronic recurring headaches. She states that she has had a headache for about 3 weeks and comes in seeking relief. She reports some nausea symptoms. She does not have any neurologic deficits and this headache is similar to previous headaches except that is more persistent. Related Data Home Medications ?Medication ?Instructions ?Recorded ?Confirmed cyclobenzaprine 10 mg tablet 10 mg PO HS PRN 10/12/23 10/12/23 levothyroxine 75 mcg tablet 75 mcg PO DAILY 10/12/23 10/12/23 Previous Rx's ?Medication ?Instructions ?Recorded ondansetron 8 mg disintegrating 8 mg PO Q8H PRN nausea and 10/05/23 tablet vomiting #10 tabs Allergies Allergy/AdvReac Type Severity Reaction Status Date / Time aspirin Allergy Mild itchy Verified 10/12/23 08:40 Review of Systems Status of ROS: Reports: 10 or more systems reviewed and unremarkable except as noted in History and below Narrative: Constitutional: No fevers, no weight gain or loss. Eyes: No discharge. No vision changes. HENT: No congestion, no sore throat, no ear pain. Cardiovascular: No chest pain, no palpitations. Respiratory: No shortness of breath, no wheezes, no cough. Gastrointestinal: No abdominal pain, no vomiting, no diarrhea. Genitourinary: No dysuria, no hematuria. Musculoskeletal: Normal range of motion. Skin: No rashes, no pruritis. Neurological: No dizziness, weakness, sensory change, speech change. Endo/Heme/Allergies: No bruising or bleeding. No polydipsia. Pysch: no suicidality, no anxiety, no insomnia. All other systems reviewed and are negative. Exam Narrative: Exam Narrative: Constitutional: Well-developed, well-nourished, no acute distress. HEENT: Normocephalic, atraumatic. Neck: Normal range of motion. Nontender. Supple. Heart: Regular. No murmurs. Normal rate. Intact distal pulses. Lungs: Clear to auscultation. No chest discomfort. No wheezes, rhonchi, or rales. Abdomen: Normal bowel sounds. Nontender. No rebound tenderness. Genitalia: Deferred. Back: No midline tenderness. Normal range of motion. Extremities: Normal range of motion. No injury. Skin: Intact. No rash. Warm. No erythema or pallor. Neurologic: No altered sensation. No weakness. Alert and oriented. Psychiatric: No suicidality. No anxiety or depression. No insomnia. Nursing notes and vitals signs are reviewed. Const: Vital Signs, click to edit/add: Vital Signs - 24 hr 03/29/24 20:52 Temperature 97.2 F L Pulse Rate [Left P ulse Oximeter] 73 Respiratory Rate 16 Blood Pressure [Ri ght Upper Arm] 137/88 Pulse Oximetry 100 Oxygen Delivery Me thod Room Air Course Vital Signs Vital signs: Initial Vital Signs Temperature 97.2 F L 03/29/24 20:52 Temperature Source Temporal Artery Scan 03/29/24 20:52 Pulse Rate 73 03/29/24 20:52 Pulse Rhythm Regular 03/29/24 20:52 Respiratory Rate 16 03/29/24 20:52 Blood Pressure 137/88 03/29/24 20:52 Blood Pressure Mean 104 03/29/24 20:52 Blood Pressure Position Sitting 03/29/24 20:52 Pulse Oximetry 100 03/29/24 20:52 Oxygen Delivery Method Room Air 03/29/24 20:52 Vital Signs Temperature 97.2 F L 03/29/24 20:52 Pulse Rate 73 03/29/24 20:52 Respiratory Rate 16 03/29/24 20:52 Blood Pressure 137/88 03/29/24 20:52 Pulse Oximetry 100 03/29/24 20:52 Oxygen Delivery Method Room Air 03/29/24 20:52 Temperature 97.2 F L 03/29/24 20:52 Pulse Rate 73 03/29/24 20:52 Respiratory Rate 16 03/29/24 20:52 Blood Pressure 137/88 03/29/24 20:52 Pulse Oximetry 100 03/29/24 20:52 Oxygen Delivery Method Room Air 03/29/24 20:52 MDM - Headache MDM Narrative Medical decision making narrative: This patient has history of chronic recurring headaches. She comes in seeking relief as this headache is been present for about 3 weeks. An IV was established where she received half a L of normal saline, 15 mg of Toradol, 50 mg of Benadryl, 4 mg of Zofran, and 125 mg of methylprednisolone. This has helped her in the past and hopefully will do so again today. Care for this patient is transferred to the overnight physician at the end of my shift. Hopefully she will be able to go home with improvement with these treatments. Discharge Plan Discharge Clinical Impression: Migraine Patient Disposition: Home w/ Parent or Adult Condition: Stable Additional Instructions: Continue current plans. Use [id number] medicines as needed and directed. Follow up with MD return if worsening. Prescriptions: No Action ondansetron 8 mg tablet,disintegrating 8 mg PO Q8H PRN (Reason: nausea and vomiting) Qty: 10 0RF cyclobenzaprine 10 mg tablet 10 mg PO HS PRN levothyroxine 75 mcg tablet 75 mcg PO DAILY Follow Up/Referrals: Kaylee Roca DIG[employer] MARKETING INTERN [Primary Care Provider] - Stand Alone Forms: [email or web address] Info Instructions
--- OUTSIDE RECORDS SUMMARY | 2024-03-29 21:17 | XMS_ITS | Clinical Summary ---
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 [place] [address], * ANTI HCV (01/17/2011 7:25 AM CDT) ANTI HCV Non-reacti ve [facility] Blood specimen (specimen) BLOOD SPECIMEN / Unknown 01/17/2011 7:25 AM CDT 01/17/2011 7:19 AM CDT us Kranthi Vargas MD SEND OUTS Final Re sult [facility] LABORATORY [place]NAL ZIP [address] [place] [address] from Last 3 Months or Most Recently [...]
[2024-03-29] MEDS: METHYLPREDNISOLONE SOD SUCC 62.5 MG/ML (125) 125 MG IVP (21:22)
[2024-03-29] MEDS: diphenhydrAMINE 50 MG/ML inj IVP (21:22)
[2024-03-29] MEDS: 0.9 % SODIUM CHLORIDE 500 ML 500 ML IV (21:22)
[2024-03-29] MEDS: KETOROLAC 30 MG/ML inj 15 MG IVP (21:23)
[2024-03-29] MEDS: ONDANSETRON 2 MG/ML inj 4 MG IVP (21:23)
== END 2024-03-29 22:53 | disposition home or self-care (01) ==
PROVIDERS: Emergency Provider Emergency Medicine Emergency Medical Services; PCP Nurse Practitioner Family
DX: G43.909 Migraine, unspecified, not intractable, without status migrainosus (principal)
CPT/HCPCS: 96361; 96374; 96375; 99284; J1200; J1885; J2405; J2919; J7030

== ENCOUNTER 2024-09-22 22:34 | Emergency (ER) | payer OTHER, SELFPAY ==
--- OUTSIDE RECORDS SUMMARY | 2024-09-22 22:36 | XMS_ITS | Data Portability ---
Author Organization [facility] - [email or web address] Kelly OFFICE Address [address] [place] [address] [place] [address] Assessment Encounter Date Assessment Date Assessment LastModified by Organization Details LastModified Time 04/11/2024 04/11/2024 total time spent on telephone and chart review 15 minutes [email or web address] Not available 04/11/2024 16:42:59 06/24/2024 06/24/2024 c [email or web address] Not available 09/2024 16:12:47 Plan of Treatment Reminders Order Date Submit Date Provider Last Modified By Organization Details Last Modified Time Details Appointments None recorded. Lab TSH, serum or plasma 2024 025 [place] Not available 18:32:41 Referral None recorded. Procedures None recorded. Surgeries None recorded. Imaging None recorded. Medication Orders duloxetine 60 mg capsule,del ayed release [address], [address], 17:36:56 levothyroxi ne 75 mcg tablet [address], [address], 17:37:09 duloxetine 30 mg capsule,del ayed release [address], [address], 5 16:37:01 duloxetine 30 mg capsule,del ayed release 2024 025 [facility], [address] [place] [address], [address], 5 17:15:42 Patient TargetsNo targets recorded. Patient InstructionsNo instructions recorded. Reason for Referral None Reported. Results Created Date Observation Date Name Description Value Unit Range Abnormal Flag Note LastModifiedBy Organization Detail LastModifiedTime 07/02/1907/01/2024 TSH, serum or plasm a TSH 0.473 Not Available [address], [address], 07/01/2024 18:09:11 Result Notes None recorded. Problems Name Problem SNOMED Code Status Onset Date Resolution Date Notes Provider Name and Address Organization Details Recorded Time Migraine 48404835 Active 2022 SARTHAK Contreras [address] [place], [address], [facility] [employer] 3 15:09:59 Fibromyalgia 656464360 Active 2022 SARTHAK Contreras [address] [place], [address], [facility] [employer] 3 15:10:09 Hypothyroidis m 73357467 Active 2022 SARTHAK Contreras [address] [place], [address], [facility] [employer] [facility] 3 15:10:18 Carpal tunnel syndrome 39941523 Active 2022 Kacy Lawson NP [address] [place], [address], [facility] [employer] 4 12:18:39 Problem Notes None recorded. Medical Equipment None Reported. Allergies Allergen ID Allergen Name Allergen Category Reaction Reaction Severity Criticality Documentation Date Start Date Code Code System Note Provider Name and Address Organization Details Recorded Time 3424 latex environme nt,medica tion rash Not available Not available 04/04/20242011 15425 91 RxNorm JOSE DUQUE MD [address] [facility] [place], [address], [facility] 18:15:51 3425 Shellfish (substanc e) food,medi cation itching rash Not available Not available Not available 04/04/20242011 06720 9006 SNOMED JOSE DUQUE MD [address] [facility] [place], [address], [facility] 5 18:15:[address] medicatio n rash Not available Not available 04/04/20242018 66714 RxNorm JOSE DUQUE MD [address] [facility] [place], [address], [facility] 18:16:05 Medications Name Sig Start Date Stop Date Status Note LastModified by Organization Details LastModified Time cyclobenzap rine 10 mg tablet TAKE ONE TABLET BY MOUTH NEEDED AT BEDTIME 2024 active Not Available Not Available Not Avai lable prednisone 10 mg tablet Take 5 pills day 1-2, 4 pills day 3-4, 3 pills days 5-6, 2 pills days 7-8, 1 pill day 9-10 11/26 completed Not Available Not Available Not Available propranolol 80 mg tablet Take 1 tablet twice a day by oral route for 30 days, for migraine prophylax is. 12/24 completed Not Available Not Available Not Available levothyroxi ne 75 mcg tablet TAKE ONE TABLET BY MOUTH EVERY DAY 2024 active Not Available Not Available Not Avai lable amitriptyli ne 10 mg tablet Take 1 tablet at bedtime for migraine prophylax is; may increase to 2 tablets at bedtime as tolerated 12/24 completed Not Available Not Available Not Available propranolol ER 80 mg capsule,24 hr,extended release TAKE ONE CAPSULE BY MOUTH EVERY DAY 11/26 completed Not Available Not Available Not Available duloxetine 30 mg capsule,del ayed release Take 2 capsules every day by oral route, for anxiety, chronic pain. 2024 active Not Available Not Available Not Avai lable duloxetine 60 mg capsule,del ayed release Take 1 capsule every day by oral route for 30 days. 2024 active Not Available Not Available Not Avai lable pregabalin 100 mg capsule TAKE ONE CAPSULE BY MOUTH TWICE A DAY 04/04 completed Not Available Not Available Not Available levothyroxi ne 75mcg 11/26 completed Not Available Not Available Not Available Vitals Date Recorded Body height Provider Name an d Address Organization Details Last Updated DateTime 04/04/2024 156.01 cm JOSE DUQUE MD [address] [place], [address], [facility] [employer] 04/04/2024 16:52:52 Date Recorded Body height Body mass index (BMI) Body weight Body temperature Oxygen saturation Oxygen saturation in Arterial blood by Pulse oximetry Heart rate Systolic And Diastolic Provider Name and Address Organization Details Last Updated DateTime 156.01 cm 23.6 kg/m2 27729.0 8 g 97.6 [degF] 99 % 99 % 80 /min 121/79 mm[Hg] Nena Horta [facility] [employer] 16:08:56 Date Recorded Heart rate Oxygen saturation Oxygen saturation in Arterial blood by Pulse oximetry Systolic And Diastolic Provider Name and Address Organization Details Last Updated DateTime 12/13/2023 71 /min 99 % 99 % 125/77 mm[Hg] SARTHAK Contreras [address] [place], [address] , [facility] [employer] 16:00:16 Social History None recorded. Functional Status [...] SNOMED-CT Code Diagnosis ICD10 Code Diagnosis Note [id number] SARTHAK ContrerasFORMERLY [facility] OFF[facility] [address] [place] [address] 01/30/2023 14:59:11 01/30/2023 15:56:08 Migraine with aura 8258752 G43.109 Discussed possibilit y of rebound sxs [...] responding Will try to review records from [facility] to try and figure out what medication caused the negative reaction; am reluctant to rx a triptan without more informatio n Fibromyalgia 814614180 M 79.7 Refilled pregablin today; otherwise did not discuss in any detailWill request some records from [facility] Hypothyroidism [id number] E03.9 Will request records from [facility] to see [place] [id number] SARTHAK Contreras OFFICE [address] [place] [address] 02/27/2023 11:02:37 02/27/2023 11:51:09 Migraine with aura 5282494 G43.109 COntinue propranolo lThe numbness on left [...] April Lateral ep icondylitis of right humerus 1828431400 74308 M77.11 Reviewed condition with ptadvised purchase and use of tennis elbow braceHand out provided with recommenda tion for icing, stretching and exercisesP T would be ideal but cost prohibitiv eF/U if not improving Feels hot 292350134 R20. 8 not sure if this is menopausal , but consider itAdvised to keep monitoring Pt not interested in exploring other medication at this time [id number] SARTHAK Contreras OFFICE [address] [place] [address] 05/15/2023 13:57:26 05/15/2023 14:38:14 Mass of right breast [id number] 4573703 N63.10 Will order diagnostic mammo c right breast U/SSage paperwork filled out today ([id number])E xplained process to ptWill f/u with results when received Migraine with aura 93158 06 G43.109 Continue propranolo lNo more magnesium or riboflavin for concerns of unfavorabl e reactionF/ U if worsening, other concernsIb uprofen or acetaminop hen prn acute pain [address] SARTHAK Contreras OFFICE [address] [place] [address] 10/23/2023 10:30:11 10/23/2023 11:37:54 Migraine with aura 9228598 G43.109 Restart propranolo l at 80mg b.i.d. [...] the pastF/U 1 month to reassess Hypothyroidism 64337455 E03.9 Will check TSH and f/u with any abnormalit y necessitat ing medication dose changes [id number] SARTHAK Contreras OFFICE [address] [place] [address] 11/27/2023 10:13:22 11/27/2023 12:16:15 Migraine with aura 1963275 G43.109 Discussed trial of another class of [...] unfavorabl e reaction Temporoman dibular joint disorder 27266304 M26.609 [id number] SARTHAK ContrerasFORMERLY [facility] OFFICE [address] [place] [address] 12/13/2023 15:56:17 12/13/2023 16:11:22 Migraine with aura 1854431 G43.109 I'm not sure trialing another medication [...] with her by phone in 2 weeks [address] SARTHAK oCntreras OFFICE [address] [place] [address] 12/25/2023 09:59:38 12/25/2023 10:20:41 Migraine with aura 4298703 G43.109 Since she got some improvemen t with the reduction of pregabalin , I think it is worth exploring dropping it further, though it may simply be a coincidenc ePt to drop rom nightly use of pregabalin to every other nightShe will call in to let me know how things are going [id number] MD [place] PERDUE OFFICE [address] [facility] [place] [address] 04/04/2024 16:51:00 04/04/2024 18:11:27 Chronic headache disorder 901716218 G44.89 question migraine and not possible rebound JEAN-BAPTISTE with daily OTC med use?No longer on pregabalin Given chronic nature of JEAN-BAPTISTE and associated anxiety/st ress discussed trial duloxetine Patient interested - will start 30 mg once daily - check in by phone in 1 week and consider increased dose [id number] JOSE DUQUE MD [facility] [address] [facility] [place] [address] 04/11/2024 16:23:43 04/11/2024 18:15:17 Chronic headache disorder 892578271 G44.89 discussed continuing this dose versus trial of full 60 mg dosePatien t interested in increasing dose - will start taking 2 tabs dailySched ule in person FU in [place] in next 6-8 weekscall if side effects or concerns [address] SARTHAK Contreras [facility] Christoph OFFICE [address] [place] [address] 06/24/2024 15:59:09 06/24/2024 16:22:23 Chronic headache disorder 113203295 G44.89 Doing reat on duloxetine 60mgMed refilled todayF/U prn Hypothyroidism 38710129 E03.9 Will check TSH and f/u with any abnormalit y necessitat ing medication dose changesRef ill levothyrox ine Health Concerns Section Related Observation LastModified by Organization Detai ls LastModified Time None Recorded Concern Status LastModified by Organization Details LastModified Time None Recorded Advance Directives Directive None Recorded Payers Insurance Date Sequence Insurance Name Policy Number Policy Gomez Covered Member ID Gomez Member ID Guarantor Name 01/30/2023 SLIDING FEE SCHEDULE - DISCOUNT Velma Doe 06/24/2024 NURIS SCREENING PROGRAM - [place] [employer]PT [employer] HEALTH Velma Doe [id number] Velma Doe Notes Date Note Type Note Provider Name and Address Organization Details Recorded Time 12/13/2023 text/html Here today for f /u [...] notes for more detailed history. SARTHAK Contreras [address] [place], [address], [facility] 12/14/2023 18:33:49 12/25/2023 text/html Here [...] notes for more detailed history. SARTHAK Contreras [address] [place], [address], [facility] 12/25/2023 10:16:35 04/04/2024 text/html 38 yo female wit h longstanding Hx headaches/migraine Stopped pregablin (with side effects of headache commonly) in November which seemed to be a little betterReports that now she has had migraine for 1 monthHA is the same but can change from one side to the next.Recently in the ER - felt better initially but the next day if started againHAs been taking ibuprofen and tylenol - takes ibuprofen 800mg/advil 800mg (3x daily), [id number] every hours - gets mild relief but returns when meds wear off. Reports that she saw neurologist years ago. JEAN-BAPTISTE were the same. Was told nothing was wrong but not treated with anything for the JEAN-BAPTISTE PMH: Fibromyalgia, hypothyroidism, migraineMeds: levothyroxine, cyclbenzaprine at bedtime, OTC pain meds dailyAll: JOSE DUQUE MD [address] [place], [address], [facility] [employer] [facility] 04/04/2024 18:18:24 04/11/2024 text/html 38 yo female wit h longstanding Hx headaches/migraineTel ephone visit for FU of JEAN-BAPTISTE today. (OLIVIA interpreting) Has started Duloxetine 30 mg once a day and reports that her JEAN-BAPTISTE are much less frequent - about every over day versus daily as previously was having. Has not needed OTC pain medication in the past week. JEAN-BAPTISTE when she has them are less severe. Has been able to sleep much better. Does not think she notices any particular side effects. PMH: Fibromyalgia, hypothyroidism, migraineMeds: levothyroxine, cyclbenzaprine at bedtime, OTC pain meds dailyAll: JOSE DUQUE MD [address] [place], [address], [facility] [employer] [facility] 04/11/2024 16:43:03 06/24/2024 text/html Here today for f/u from last visit a couple of weeks ago (please see previous notes)Hx of longstanding problems with chronic headaches/migrainesSt arted on duloxetine in March . Currently on 60mg. Previously trialed propranol, amitriptyline, pregablin with poor response (see previous OV notes for more history) Initially reported good response to 30 mg. Today says she is doing great. Has had 1 migraine every 2 weeks or so since starting the duloxetine. This is a tremendous improvement. Triggers are stress, lack of sleep. She also is sleeping better and her fibromyalgia pain is controlled. She is no longer taking pregablin. She does still take cyclobenzaprine for her chronic jaw pain but otherwise feels things are well controlled with the duloxetine. Requesting refill on levothyroxine. Last check of TSH was October 2023; TSH slightly low at that time. Recommend recheck now. PMH: Fibromyalgia, hypothyroidism, migraineMeds: levothyroxine, cyclbenzaprine at bedtime, OTC pain meds daily Preventative:- cervical ca screening: Unsure when due- breast cancer screneing: had mammo and u/s in June 2023; can repeat 2024 SARTHAK Contreras [address] [place], [address], [facility] 06/24/2024 16:26:35 OBGyn Episode No OBEpisode recorded.
--- OUTSIDE RECORDS SUMMARY | 2024-09-22 22:36 | XMS_ITS | Clinical Summary ---
Author Organization [employer] [facility] Address [address] [place] [address] Care Team Providers Care Bag Machine Adjuster Name Role Phone Unavailable Primary Care Provider [...] s maik episode, moderate 06/16/2008 09/04/2012 Immunizations Immunization Administration Dates Next Due AMB Influenza, IIV3 [...] 1 Brother 2 Father Mother Sister 1 Shefaliodora Sister 2 Sister 3 Jeanette Sister 4 [...] Sex Assigned at Female 04/02/2021 8:07 PM ASSOCIATE MERCHANT Legal Sex Female 7:03 AM ASSOCIATE MERCHANT Gender Identity Female 04/02/2021 8:07 PM ASSOCIATE MERCHANT Sexual Orientation Straight 04/02/2021 8: 07 PM ASSOCIATE MERCHANT 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 Not on file Not on file Not [...] Health Maintenance Due Date Last Done Comments Hepatitis B series for 19+ (1 of 3 - 19+ 3-dose series) 06/09/2002 Depression screening for age 12+ 09/16/2022 09/16/2021, 08/28/2020, 08/23/2019, Additional history exists BMI (ht and wt on same day) for age 18+ 08/04/2023 08/03/2022, 06/09/2022, 2021, Additional history exists COVID-19 vaccine series ( season) 2023 12/17/2021, 04/05/2021, 08/13/2020, Additional history exists Influenza Vaccine (#1) 2024 , 12/11/2020, 01/16/2020, Additional history exists Tetanus booster 10/29/2029 10/30/2019, 07/16/2009 Hepatitis C screening for age 18-79 Completed 01/17/2011 HIV for age 15-65 Completed 10/30/2014, 01/17/2011 Pneumococcal series for age 6-49 Aged Out [...] ve Non-Reacti ve 10/30/2014 10:48 PM CDT [facility] TRAL LABORATORY Blood specimen (specimen) BLOOD SPECIMEN / Unknown Venipuncture / Unknown 10/30/2014 11:20 AM CDT 10/30/2014 11:20 AM CDT Narrative [facility] - 10/30/2014 10:48 PM CDT HIV-1 p24 and HIV-1/HIV-2 Ab not detected us Amada Greer DO SEND OUTS Final Resu lt [facility] LAB[facility]-CEN[facility]AL LABORATORY [address] [place] [address], [place] * ANTI HCV (01/17/2011 7:25 AM CDT) ANTI HCV Non-reacti ve [facility] Blood specimen (specimen) BLOOD SPECIMEN / Unknown 01/17/2011 7:25 AM CDT 01/17/2011 7:19 AM CDT us Kranthi Vargas MD SEND OUTS Final Re sult [facility] LABOR[facility]ORY INTERNAL ZIP [address] [place] [address] from Last 3 Months or Most Recently [...]
[2024-09-22 22:50] VITALS: BP 137/104; PULSE 82; RESP 16; TEMP 36.9; O2SAT 100; BMI 22.7
--- NOTE | 2024-09-22 23:12 | ED.SKABFB ---
HPI - Skin/Abscess/Foreign Bdy General Date Seen: 09/22/24 Chief complaint: Skin/Abscess/Foreign Body Stated complaint: Rash all over Time Seen by Provider: 09/22/24 22:46 Source: patient and family Mode of arrival: ambulatory Limitations: no limitations History of Present Illness HPI narrative: Patient is a very nice 39-year-old female who presents here for evaluation of swelling on the medial side of her left knee, it hurts, just cropped up, this is associated with a rash on her right inner arm, she has had the rash before she says she gets rashes from all sorts of different things, she was outside when her was mowing, and she has an allergy to grass, she took some Benadryl before coming in and the rash is significantly improved, although now the swelling is a little bit more on her knee. No history of any problems breathing, or swelling, wheezing, Related Data Home Medications ?Medication ?Instructions ?Recorded ?Confirmed cyclobenzaprine 10 mg tablet 10 mg PO HS PRN 10/12/23 10/12/23 levothyroxine 75 mcg tablet 75 mcg PO DAILY 10/12/23 10/12/23 Previous Rx's ?Medication ?Instructions ?Recorded ondansetron 8 mg disintegrating 8 mg PO Q8H PRN nausea and 10/05/23 tablet vomiting #10 tabs Allergies Allergy/AdvReac Type Severity Reaction Status Date / Time aspirin Allergy Mild itchy Verified 10/12/23 08:40 Review of Systems Status of ROS: Reports: 10 or more systems reviewed and unremarkable except as noted in History and below PFSH PFSH Social History Smoking Status: Unknown if ever smoked Second hand tobacco smoke exposure: No Exam Narrative: Exam Narrative: On examination she is in no apparent distress on the medial side of her left knee, just below the joint line, there is a swelling that is tender, it is approximately quarter size, with some bruising around it, consistent with a small hematoma, her knee has full range of motion, on the left side, no a no lateral medial collateral ligament issues, ACL and PCL are intact complete fossa is normal, her foot has normal pulses DP and posterior tibial, there is absolutely no edema, full range of motion of her knee is noted, her right medial upper arm shows a little bit of resolving rash it appears to be a bit of contact dermatitis. Const: Vital Signs, click to edit/add: Vital Signs - 24 hr 09/22/24 22:50 Temperature 98.5 F Pulse Rate [Left P ulse Oximeter] 82 Respiratory Rate 16 Blood Pressure [Ri ght Upper Arm] 137/104 H Pulse Oximetry 100 Oxygen Delivery Me thod Room Air Documenting provider has reviewed patient's vital signs: yes Course Course ED Course: I reassured her, some Tylenol and some ice, a little bit of compression wrap will probably help this. And and follow-up as needed. I explained that the hematoma will track down her leg, Vital Signs Vital signs: Initial Vital Signs Temperature 98.5 F 09/22/24 22:50 Temperature Source Temporal Artery Scan 09/22/24 22:50 Pulse Rate 82 09/22/24 22:50 Respiratory Rate 16 09/22/24 22:50 Blood Pressure 137/104 H 09/22/24 22:50 Blood Pressure Mean 115 H 09/22/24 22:50 Blood Pressure Position Sitting 09/22/24 22:50 Pulse Oximetry 100 09/22/24 22:50 Oxygen Delivery Method Room Air 09/22/24 22:50 Vital Signs Temperature 98.5 F 09/22/24 22:50 Pulse Rate 82 09/22/24 22:50 Respiratory Rate 16 09/22/24 22:50 Blood Pressure 137/104 H 09/22/24 22:50 Pulse Oximetry 100 09/22/24 22:50 Oxygen Delivery Method Room Air 09/22/24 22:50 Temperature 98.5 F 09/22/24 22:50 Pulse Rate 82 09/22/24 22:50 Respiratory Rate 16 09/22/24 22:50 Blood Pressure 137/104 H 09/22/24 22:50 Pulse Oximetry 100 09/22/24 22:50 Oxygen Delivery Method Room Air 09/22/24 22:50 MDM - Skin/Abscess/Foreign Bdy MDM Narrative Medical decision making narrative: I did use the ultrasound, using the linear attachment I was able to see that there was some fluid here, consistent with a ruptured blood vessel, in a very small hematoma, that I think was the issue. This may either be spontaneous or traumatic. The rash was resolving on her right arm Discharge Plan Discharge Clinical Impression: Hematoma, Contact dermatitis Patient Disposition: Home w/ Parent or Adult Condition: Stable Instructions: Contact Dermatitis (DC) Additional Instructions: Home rest, wrapping this will help, ice for the 1st couple days then heat, Tylenol will also help, I believe the other rashes more of a contact dermatitis, I think the Benadryl you took really helped that, follow-up as needed, Activity Level: Light activity Prescriptions: No Action ondansetron 8 mg tablet,disintegrating 8 mg PO Q8H PRN (Reason: nausea and vomiting) Qty: 10 0RF cyclobenzaprine 10 mg tablet 10 mg PO HS PRN levothyroxine 75 mcg tablet 75 mcg PO DAILY Follow Up/Referrals: Kaylee Roca INJURY PREVENTION COORDINATOR [Primary Care Provider, Family Practice] Stand Alone Forms: Oxxyth Info Instructions
[2024-09-22] MEDS: ACETAMINOPHEN 500 MG TABLET 1000 MG PO (23:22)
--- NOTE | 2024-09-22 23:25 | ED.NURSE ---
Pt D/C by MD before being able to do full assessment on pt.
== END 2024-09-22 23:28 | disposition home or self-care (01) ==
LOC: ED 23:15
PROVIDERS: Emergency Provider Family Medicine; PCP Nurse Practitioner Family
DX: S40.021A Contusion of right upper arm, initial encounter (principal); L25.9 Unspecified contact dermatitis, unspecified cause
CPT/HCPCS: 99283; A9270